=== PATIENT | female | born 2000 | race African-American/Black ===

== ENCOUNTER 2023-08-28 10:42 | Emergency (ER) | payer OTHER, SELFPAY ==
[2023-08-28 10:45] VITALS: BP 122/98; PULSE 59; RESP 14; TEMP 36.3; O2SAT 98; BMI 25.2
[2023-08-28 11:27] LABS: Urine Volume 10mL (spun)
[2023-08-28 11:28] LABS: Bacteria Urine Moderate (10-30); Culture Indicated Urine Cult Not Indicated; RBC Urine None Seen (0-5/HPF); Squamous Epithelial Cell Urine 10-30 /HPF (0-5/HPF); WBC Urine 1-5/HPF (0-5/HPF)
--- NOTE | 2023-08-28 12:04 | ED_ITS ---
HPI - Recheck/Abnormal Lab/Rx General Chief Complaint: Recheck/Abnormal Lab/Rx Stated Complaint: female wellness check [employer] Time Seen by Provider: 08/28/23 11:28 Source: patient Mode of arrival: Ambulatory History of Present Illness HPI narrative: 23-year-old female with past medical history PCOS, menorrhagia presents to the ED with menstrual cramps. Patient says that she has taken BC powder with minimal relief. Patient states that this is the 10th day of her period. Patient states that it is baseline for her to have such long periods. Patient's bleeding is mild. However, patient is here due to menstrual cramping that is not baseline. No fever, chills, shortness of breath, nausea, vomiting, lightheadedness, dizziness, syncope. Related Data Allergies Allergy/AdvReac Type Severity Reaction Status Date / Time No Known Drug Allergies Allergy Verified 08/28/23 10:45 Review of Systems Constitutional Constitutional: Denies chills, Denies fatigue, Denies fever(s), Denies frequent falls, Denies lethargy and Denies weakness Eyes Eyes: Denies change in vision, Denies eye discharge, Denies irritation and Denies loss of vision ENT Ears, Nose, Mouth, and Throat: Denies change in voice, Denies dizziness, Denies neck pain, Denies sore throat and Denies throat swelling Cardiovascular Cardiovascular: Denies chest pain, Denies irregular heart rhythm, Denies lightheadedness, Denies palpitations, Denies dyspnea, Denies dyspnea on exertion and Denies orthopnea Respiratory Respiratory: Denies cough, Denies dyspnea, Denies dyspnea on exertion and Denies wheezing Gastrointestinal Gastrointestinal: Denies abdominal pain, Denies change in bowel habits, Denies diarrhea, Denies nausea and Denies vomiting Genitourinary Comments: Menstrual cramps Musculoskeletal Musculoskeletal: Denies neck pain and Denies numbness Integumentary/Breasts Skin/Breast: Denies pruritus, Denies erythema, Denies rash and Denies wounds Neurologic Neurologic: Denies behavioral changes, Denies confusion, Denies dizziness, Denies frequent falls, Denies loss of vision, Denies numbness and Denies weakness Psychiatric Psychiatric: Denies anxiety, Denies behavioral changes, Denies confusion, Denies depression, Denies homicidal ideation and Denies suicidal ideation Endocrine Endocrine: Denies fatigue, Denies flushing and Denies palpitations Hematologic/Lymphatic Hematologic/Lymphatic: Denies easy bruising Allergic/Immunologic Allergic/Immunologic: Denies urticaria, Denies throat swelling and Denies wheezing Patient History Social History Smoking Status: Unknown if ever smoked Smoking Status: Unknown if ever smoked alcohol intake frequency: holidays/special occasions only Substance Use Type: does not use Exam Narrative Exam Narrative: Const General:?cooperative, healthy appearing and comfortable [facility] Head:?normal to inspection Ears:?hearing grossly normal bilaterally Nose:?external nose normal Face and sinus:?normal facial exam and sinuses nontender Mouth:?oral mucosae normal Throat:?posterior oropharynx normal Eyes General:?appearance normal, both eyes and all related structures Neck Neck:?normal visual inspection and no lymphadenopathy noted Resp Effort & Inspection:?normal respiratory effort Auscultation:?clear to auscultation bilaterally Cardio Rate:?regular rate Rhythm:?regular rhythm GI Abdomen is soft, nondistended, nontender to palpation. Neuro General:?patient alert, patient awake and patient oriented x3 Initial Vital Signs Initial Vital Signs: Vital Signs Temperature 97.3 F L 08/28/23 10:45 Pulse Rate 59 L 08/28/23 10:45 Respiratory Rate 14 08/28/23 10:45 Blood Pressure 122/98 H 08/28/23 10:45 Pulse Oximetry 98 08/28/23 10:45 Oxygen Delivery Method Room Air 08/28/23 10:45 Course Orders Ordered: ED Orders 08/28/23 11:00 Urine Microscopic Stat Discontinued Medications Ketorolac Tromethamine (Ketorolac 30 Mg/Ml Vial) 30 mg IM NOW ONE Stop: 08/28/23 12:23 Last Admin: 08/28/23 12:30 Dose: 30 mg Documented By: RL Vital Signs Vital signs: Vital Signs - 8 hr 08/28/23 10:45 08/28/23 12:34 Temperature 97.3 F L Pulse Rate 59 L 70 Respiratory Rate 14 16 Blood Pressure 122/98 H 120/80 Pulse Oximetry 98 100 Oxygen Delivery Method Room Air Room Air MDM - Recheck/Abnormal Lab/Rx Lab Data Labs: Lab Results 08/28/23 Range/Units 11:00 Urine RBC None seen (0-5/HPF) Urine WBC 1-5/hpf (0-5/HPF) Ur Squamous Epith Cells 10-30 /hpf H (0-5/HPF) Urine Bacteria Moderate (10-30) H (None) Ur Culture Indicated? Cult not indicated Vol Urine Centrifuged 10ml (spun) Point of Care Testing Test Results Negative Urine Dip Bedside Urine Glucose Negative Bedside Urine Bilirubin - Negative Bedside Urine Ketone - Negative Urine Specific [place] 1.020 Bedside Urine Occult Blood +++ Bedside Urine pH 6.5 Bedside Urine Protein - Negative Bedside Urine Urobilinogen - Negative Bedside Urine Nitrite - Negative Bedside Urine Leukocytes - Negative Esterase MDM Narrative Medical decision making narrative: 23-year-old female with past medical history PCOS, menorrhagia presents to the ED with menstrual cramps. Patient's symptoms are most consistent with dysmenorrhea. Patient given a dose of ketorolac IM. Recommend continuing ibuprofen for pain. Recommend follow-up with PCP/breakfast manager as soon as possible for further evaluation. ED return precautions discussed with patient. Patient verbalized understanding. Medical records reviewed: Yes Discharge Plan Departure Patient Disposition: Home Clinical Impression: Dysmenorrhea Instructions: DI for Dysmenorrhea Activity Restrictions/Additional Instructions: You were evaluated in the ED today for menstrual cramping. You were given a shot of Toradol for pain and bleeding. Please continue to take 800 mg of ibuprofen 3 times a day with food to control the pain and bleeding. Please follow-up with an OBGYN as soon as possible for further evaluation. Return to the ED if you have worsening symptoms, shortness of breath, chest pain. Stand Alone Forms: Patient Portal/API
[2023-08-28] MEDS: KETOROLAC 30 MG/ML VIAL IM (12:30)
[2023-08-28 12:34] VITALS: BP 120/80; PULSE 70; RESP 16; O2SAT 100
== END 2023-08-28 12:35 | disposition home or self-care (01) ==
PROVIDERS: Emergency Medicine; Emergency Provider Student in an Organized Health Care Education/Training Program
DX: N94.6 Dysmenorrhea, unspecified (principal)
CPT/HCPCS: 81003; 81015; 81025; 96372; 99283; J1885